=== PATIENT | male | born 1975 | race Caucasian/White ===

== ENCOUNTER → 2018-09-20 08:19 | Outpatient (CLI) | payer OTHER | END | disposition home or self-care (01) | LOC: D.RAD 08:19 | PROVIDERS: ATTEND Nurse Practitioner Family | DX: M25.511 Pain in right shoulder (principal) ==

== ENCOUNTER 2019-02-08 18:44 | Emergency (ER) | payer OTHER ==
[~2019-02-08] VITALS: Ht 177.8 cm; Wt 90.9 kg
[2019-02-08 18:49] VITALS: Ht 177.8 cm; Wt 90.9 kg
[2019-02-08 21:37] VITALS: BP 117/73
== END 2019-02-08 21:37 | disposition home or self-care (01) ==
LOC: D.ER 18:44
DX: R51 Headache (principal); R42 Dizziness and giddiness

== ENCOUNTER 2020-02-21 12:24 | Emergency (ER) | payer SELFPAY ==
[2020-02-21 12:33] VITALS: BP 145/99; Ht 177.8 cm
[2020-02-21] MEDS ORDERED: MUPIROCIN15 GM TOPICAL (13:16)
[2020-02-24 12:12] LABS: HEPATITIS C ANTIBODY 0.2 S/CO RAT (0.0-0.9)
== END 2020-02-21 14:06 | disposition home or self-care (01) ==
LOC: D.ER 12:24
PROVIDERS: Family Medicine
DX: Y09 Assault by unspecified means (principal); T14.8XXA Other injury of unspecified body region, initial encounter; X58.XXXA Exposure to other specified factors, initial encounter; Z23 Encounter for immunization; A35 Other tetanus